=== PATIENT | male | born 1965 | race Caucasian/White ===

== ENCOUNTER 2020-05-25 19:29 | Emergency (ER) | payer MEDICAID ==
[~2020-05-25] VITALS: Ht 172.7 cm; Wt 70.0 kg
--- NOTE | 2020-05-25 19:29 | NUR ---
INITIAL PT CONTACT. PT BIBA C/O AUDITORY HALLUCINATIONS. "TELLING ME TO HURT MYSELF, I KIND OF WANT TO HURT MYSELF AND KIND OF DON'T". HX OF SAME. PT DENIES PLAN OR HI. PT ALSO C/O BILATERAL FOOT PAIN, "I HAVE BEEN WALKING ALL DAY, MY FEET JUST HURT". PT SITTING UPRIGHT ON GURNEY, ALL BELONGINGS SECURES IN PROPER LOCKER, X2 BAGS. PT CHANGED INTO GOWN AND SAFETY REYNOLDS DOWN AND SAFETY PRECAUTIONS IN PLACE. PT UP TO BATHROOM TO PROVIDE URINE SAMPLE, UNABLE AT THIS TIME. PT PROVIDED WATER AND WARM BLANKETS. NO ADDITIONAL NEEDS AT THIS TIME.
[2020-05-25 19:57] LABS: BASOPHILS % (AUTO) 1 % (0-1); EOSINOPHILS % (AUTO) 0 % (1-7); LYMPHOCYTES % (AUTO) 19 % (22-44); MEAN CORPUSCULAR HEMOGLOBIN 30.9 pg (27.5-34.5); MEAN CORPUSCULAR HGB CONC 34.2 g/dL (33.2-36.2); MEAN PLATELET VOLUME 8.2 fL (7.4-10.4); MONOCYTES % (AUTO) 7 % (2-9); NEUTROPHILS % (AUTO) 74 % (42-75); PLATELET COUNT 360 x10^3/uL (130-400); RED BLOOD COUNT 4.71 x10^6/uL (4.38-5.82); RED CELL DISTRIBUTION WIDTH 13.5 % (9.4-14.8)
[2020-05-25 19:58] LABS: MD NO
[2020-05-25 20:11] LABS: ALANINE AMINOTRANSFERASE 35 U/L (12-78); ALBUMIN 4.1 g/dL (3.4-5.0); ANION GAP 10 mmol/L (5-15); CALCIUM 9.3 mg/dL (8.5-10.1); CHLORIDE 105 mmol/L (98-107); CREATININE 1.04 mg/dL (0.7-1.3); SALICYLATE LEVEL < 1.7 mg/dL (2.8-20.0)
[2020-05-25 20:21] LABS: ALKALINE PHOSPHATASE 78 U/L (45-117); TOTAL PROTEIN 8.2 g/dL (6.4-8.2)
--- NOTE | 2020-05-25 20:29 | NUR ---
ERP AT BEDSIDE
--- NOTE | 2020-05-25 20:30 | NUR ---
PT PROVIDED GLASS OF WATER TO PROVIDE URINE SAMPLE, PT STATES "I STILL CAN'T PEE" AT THIS TIME.
--- NOTE | 2020-05-25 21:03 | NUR ---
PT SUPINE ON EDISON WILSON, RESTING COMFORTABLY WITH EYES CLOSED. PT DENIES ANY NEEDS AT THIS TIME. SAFETY PRECAUTIONS IN PLACE.
--- NOTE | 2020-05-25 21:24 | NUR ---
TELE PSYCH CAMERA SET UP IN PT ROOM, AWAITING CALL AT THIS TIME
[2020-05-25] MEDS ORDERED: ZIPRASIDONE 20 MG INJ IM ONE ×2 (21:29→22:00)
--- NOTE | 2020-05-25 21:32 | NUR ---
PT INCREASINGLY AGITATED, LEAVING ROOM, WALKING AROUND HALLWAY SAYING HE WANS TO LEAVE. ARGUMENTATIVE WITH STAFF. "I DONT NEED TO BE HERE ANY MORE, WHY CANT YOU LOOK AT MY FEET, I NEED MY STUFF AND NEED TO GO". PT REFUSING TO RETURN TO ROOM. SECURITY CALLED AND PT WALKED BACK TO ROOM WITH STAFF AND SECURITY. PT CONTINUES TO BE UNCOOPERATIVE. ERP AWARE AND AT BEDSIDE. PT MEDICATED PER EMAR.
--- NOTE | 2020-05-25 21:38 | NUR ---
Note nathan in EDM - 05/25/20 at 2147 by SAMSON PT INCREASINGLY AGITATED, LEAVING ROOM, WALKING AROUND HALLWAY SAYING HE WANS TO LEAVE. ARGUMENTATIVE WITH STAFF. "I DONT NEED TO BE HERE ANY MORE, WHY CANT YOU LOOK AT MY FEET, I NEED MY STUFF AND NEED TO GO". PT REFUSING TO RETURN TO ROOM. SECURITY CALLED AND PT WALKED BACK TO ROOM WITH STAFF AND SECURITY. PT CONTINUES TO BE UNCOOPERATIVE. ERP AWARE AND AT BEDSIDE. PT MEDICATED PER EMAR.
--- NOTE | 2020-05-25 22:00 | NUR ---
PT HAVING CONVERSATION WITH TELE PSYCH. PT COOPERATING. DENIES ANY NEEDS AT THIS TIME. SAFETY REYNOLDS DOWN AND SITTER IN VIEW.
--- NOTE | 2020-05-25 23:05 | NUR ---
PT PROVIDED ALL BELONGINGS (X2 BAGS) AND INSTRUCTED TO GET DRESSED. AWAITING D/C.
--- NOTE | 2020-05-25 23:19 | NUR ---
ATTEMPT TO D/C PT. PT STATES "IM TOO GROGGY", PT UNABLE TO KEEP EYES OPEN AND STAY AWAKE WHILE GETTING DRESSED. PT REPOSITIONED ON GURNEY, LIGHTS OFF AND PT RESTING COMFORTABLY UNTIL ABLE TO D/C.
--- NOTE | 2020-05-25 23:57 | NUR ---
PT SUPINE ON GURNEY, RESTING CALMLY WITH EYES CLOSED. PT DENIES ANY NEEDS. WILL CONTINUE TO MONITOR.
--- NOTE | 2020-05-26 01:02 | NUR ---
PT SUPINE ON GURNEY, RESTING CALMLY WITH EYES CLOSED. PT REMAINS UNABLE TO AMBULATE WITH STEADY GAIT, PT DOZING OFF DURING CONVERSATION. PT DENIES ANY NEEDS. WILL CONTINUE TO MONITOR.
[2020-05-26 01:45] VITALS: BP 132/72
--- NOTE | 2020-05-26 01:46 | NUR ---
Patient given discharge instructions and they have confirmed that they understand the instructions. Patient ambulatory with steady gait. Pt provided cab voucher upon d/c.
== END 2020-05-26 01:46 | disposition home or self-care (01) ==
LOC: ED 20:24
DX: F15.151 Other stimulant abuse with stimulant-induced psychotic disorder with hallucinations (principal); F10.10 Alcohol abuse, uncomplicated; R45.851 Suicidal ideations; R44.0 Auditory hallucinations; Z72.9 Problem related to lifestyle, unspecified; Y90.0 Blood alcohol level of less than 20 mg/100 ml
CPT/HCPCS: 36415; 80053; 80299; 80320; 80329; 84443; 85025; 96372; 99283; J3486; 99284; G0480

== ENCOUNTER 2020-05-26 05:38 | Emergency (ER) | payer MEDICAID ==
[~2020-05-26] VITALS: Ht 172.7 cm; Wt 80.7 kg
--- NOTE | 2020-05-26 06:10 | NUR ---
patient resting in bed with eyes closed. in NAD. reports hearing voices. A&Ox4. call cuellar in reach. safety maintained. no impulsive tendencies. bed in lowest position
[2020-05-26] MEDS ORDERED: OLANZAPINE 5 MG TABLET ONE (06:14)
--- NOTE | 2020-05-26 06:59 | NUR ---
report given to albert SZYMANSKI
--- NOTE | 2020-05-26 07:52 | NUR ---
PT TOOK A SHOWER AND PROVIDED PANTS AND SHOES. ADDITIONALLY GIVEN LIST OF LOCAL RESOURCES. GIVEN DISCHARGE INSTRUCTIONS WITH PRESCRIPTION. SHOWED PT THE RESOURCE LIST WITH [facility] AND CLINIC LISTED AND ENCOURAGED HIM TO GET IT FILLED. AMBULATED TO DISCHARGE WINDOW STEADY GAIT.
[2020-05-26 07:54] VITALS: BP 137/74
[2020-05-26] MEDS ORDERED: OLANZAPINE 5 MG TABLET PO ONE (09:00)
== END 2020-05-26 07:56 | disposition home or self-care (01) ==
LOC: ED 05:42
DX: F15.10 Other stimulant abuse, uncomplicated (principal); Z72.9 Problem related to lifestyle, unspecified; Z91.14 Patient's other noncompliance with medication regimen
CPT/HCPCS: 99283